=== PATIENT | female | born 1985 | race Two or more races ===

== ENCOUNTER 2018-02-27 02:21 | Emergency (ER) | payer OTHER ==
[2018-02-27 02:28] VITALS: BP 146/92; PULSE 90; TEMP 97.9; BMI 24.5
[2018-02-27] MEDS ORDERED: DIPHTH,PERTUSS(ACELL),TET 0.5 ML DISP.SYRIN IM ONE (02:53)
--- NOTE | 2018-02-27 02:55 | PDOC ---
History of Present Illness - General Chief Complaint: Injury Stated Complaint: INTOX,FALL Time Seen by Provider: 02/27/18 02:32 History Source: Patient Exam Limitations: No Limitations - History of Present Illness Initial Comments: 02/27/18 03:36 This is a 32-year-old woman with past medical history of EtOH abuse was brought to the emergency department by EMS with head trauma. Patient states she does not remember how she sustained the trauma. She reports she was seen at another hospital for alcohol intoxication yesterday and was sent to [facility] for rehabilitation. She was unable to secure a bed this evening and went drinking instead. Patient reports she drank until she couldn't remember. The next thing the patient remembers she woke up and called 911. Patient is currently complaining of chin pain. Past History - Past Medical History Allergies/Adverse Reactions: Allergies Allergy/AdvReac Type Severity Reaction Status Date / Time No Known Allergies Allergy Verified 02/27/18 02:26 Home Medications: Ambulatory Orders NK [No Known Home Medication] 02/27/18 - Suicide/Smoking/Psychosocial Hx Smoking History: Never smoked Have you smoked in the past 12 months: No Information on smoking cessation initiated: No Hx Alcohol Use: No Drug/Substance Use Hx: No Review of Systems - Review of Systems Able to Perform ROS?: Yes Is the patient limited [place] proficient: No Constitutional: No: Symptoms Reported HEENTM: Yes: See HPI Respiratory: No: Symptoms reported Cardiac (ROS): No: Symptoms Reported ABD/GI: No: Symptoms Reported : No: Symptoms Reported Musculoskeletal: No: Symptoms Reported Integumentary: No: Symptoms Reported Neurological: Yes: See HPI *Physical Exam - Vital Signs Last Vital Signs Temp Pulse Resp BP Pulse Ox 97.9 F 90 16 146/92 96 02/27/18 02:26 02/27/18 02:26 02/27/18 02:26 02/27/18 02:26 02/27/18 02:26 - Physical Exam General Appearance: Yes: Appropriately Dressed, Alcohol on Breath. No: Apparent Distress HEENT: positive: EOMI, RAJ, Pharynx Normal, Hearing Grossly Normal, Other ( Ecchymosis noted to the right supraorbital. Hematoma noted to left forehead. Abrasion noted to underside of chin. No Barth sign present. No septal hematomas noted. ). negative: Hearing Decreased, Excessive drooling Neck: positive: Trachea midline, Supple Respiratory/Chest: positive: Lungs Clear, Normal Breath Sounds. negative: Respiratory Distress, Accessory Muscle Use Cardiovascular: positive: Regular Rhythm, Regular Rate, S1, S2. negative: Edema , Murmur Gastrointestinal/Abdominal: positive: Normal Bowel Sounds, Soft. negative: Tender Musculoskeletal: positive: Normal Inspection. negative: CVA Tenderness Extremity: positive: Normal Capillary Refill, Normal Inspection, Normal Range of Motion Integumentary: positive: Normal Color, Dry, Warm Neurologic: positive: molding sander II-XII NML intact, Alert, Normal Mood/Affect, Normal Response, Motor Strength 5/5, Finger to Nose. negative: Fully Oriented ( disoriented to place), Numbness ED Treatment Course - LABORATORY CBC & Chemistry Diagram: 02/27/18 03:10 02/27/18 03:10 - RADIOLOGY Radiology Studies Ordered: Category Date Time Status CERVICAL SPINE CT W/O CONTR [CT] Stat CT Scan 02/27/18 02:[address] WITHOUT CONTRAST [CT] Stat CT Scan 02/27/18 02:53 Ordered Medical Decision Making - Medical Decision Making 02/27/18 03:47 A/P: 32-year-old female with head trauma of unknown etiology status post alcohol consumption Supraorbital ecchymosis present to the right eye Hematoma present to the left for heart No Barth sign present No bony deformity noted to palpation of the face and skull No septal hematomas present Oropharynx with no loose teeth, blood or vomitus present subcetimeter linear superficial lac to submental area- bleeding controlled. Lungs clear to auscultation bilaterally No ecchymosis or bruising noted to the trunk or extremities Abdomen soft nontender nondistended Urine , urinalysis, labs, CT of head and neck Reassess 02/27/18 04:57 CAT scan is read by imaging contract administrative assistant: CT of the head reveals there is no which cranial bleed, x-ray fluid collection, mass effect, midline shift, hydrocephalus, acute territorial infarct with of her skull fracture evident. CT of the C-spine: 1. There is no acute fracture deformity or subluxation. Vertebral body height and alignment are grossly maintained. No significant prevertebral soft tissue thickening. No significant central canal narrowing. 2. Straitening/slight reversal of normal cervical lordosis be due to muscle spasm versus patient positioning. Impression: No acute fracture or acute subluxation. 02/27/18 04:59 Laboratory testing remarkable for elevated AST and ALT which is consistent with patient's excessive alcohol intake tonight. Pt AA&Ox3. Ambulatory with steady gait. No slurring of speech. Pt aceived clinical sobriety. I will refer pt to [facility] should she desire detox/rehab. Refusing presently. I will discharge the patient home. *DC/Admit/Observation/Transfer Diagnosis at time of Disposition: Hematoma Ecchymosis of eye Qualifiers: Encounter type: initial encounter Laterality: right Qualified Code(s): S05.11XA - Contusion of eyeball and orbital tissues, right eye, initial encounter Closed head injury Qualifiers: Encounter type: initial encounter Qualified Code(s): S09.90XA - Unspecified injury of head, initial encounter Abrasion of chin Qualifiers: Encounter type: initial encounter Qualified Code(s): S00.81XA - Abrasion of other part of head, initial encounter - Discharge Dispostion Disposition: HOME Condition at time of disposition: Fair Decision to Admit order: No - Referrals - Patient Instructions Printed Discharge Instructions: DI for Closed Head Injury Additional Instructions: You may experience headaches for the next couple of weeks. Take Tylenol or Motrin as directed by polyethylene combiner's instructions to relieve the pain. Avoid alcohol intake Keep well-hydrated Eat a well-balanced diet Return to emergency department for headaches, nausea, vomiting, blurry vision, dizziness or any other concerns. - Post Discharge Activity
[2018-02-27 03:45] LABS: BASO % 4.8 % (0-2.0); EOS % 1.2 % (0-4.5); HEMOGLOBIN 14.5 GM/dL (10.7-15.3); LYMPH % 50.6 % (8-40); MCH 35.7 pg (25.7-33.7); MCHC 34.4 g/dl (32.0-36.0); MEAN CELL VOLUME 103.6 fl (80-96); MONO % 9.6 % (3.8-10.2); NEUT % 33.8 % (42.8-82.8); PLATELET COUNT 123 K/MM3 (134-434); RBC 4.06 M/mm3 (3.60-5.2); URINE APPEARANCE SLCLOUDY; URINE BILIRUBIN NEGATIVE (<2.0 mg/dL); URINE COLOR YELLOW; URINE GLUCOSE (UA) NEGATIVE (NEGATIVE); URINE KETONE NEGATIVE (NEGATIVE); URINE LEUK ESTERASE TRACE (NEGATIVE); URINE NITRITE NEGATIVE (NEGATIVE); URINE UROBILINOGEN NEGATIVE mg/dL (0.2-1.0); WHITE BLOOD COUNT 3.6 K/mm3 (4.0-10.0)
[2018-02-27 03:46] LABS: HCG,QUALITATIVE URINE NEGATIVE; URINE PROTEIN 2+ (NEGATIVE)
[2018-02-27 03:48] LABS: EPI CELLS FEW /HPF (FEW); URINE MUCUS FEW
[2018-02-27 04:23] LABS: INR 0.94 (0.82-1.09); PROTHROMBIN TIME (PATIENT) 10.6 SEC (9.7-13.0)
[2018-02-27 04:33] LABS: ALBUMIN 4.3 g/dl (3.4-5.0); ANION GAP 10 (8-16); BLOOD UREA NITROGEN 7 mg/dL (7-18); CALCIUM 8.7 mg/dL (8.5-10.1); CHLORIDE 100 mmol/L (98-107); CO2 30 mmol/L (21-32); CREATININE 0.6 mg/dL (0.55-1.02); GLUCOSE,RANDOM 89 mg/dL (74-106); SGPT/ALT 111 U/L (12-78); SODIUM 140 mmol/L (136-145)
[2018-02-27 04:34] LABS: ALK PHOS 98 U/L (45-117); BILIRUBIN,TOTAL 0.8 mg/dL (0.2-1.0)
[2018-02-27 04:43] LABS: POTASSIUM 4.3 mmol/L (3.5-5.1); SGOT/AST 240 U/L (15-37)
== END 2018-02-27 08:08 | disposition home or self-care (01) ==
LOC: JER 02:21
PROC: 3E0234Z Introduction of Serum, Toxoid and Vaccine into Muscle, Percutaneous Approach (ICD-10-PCS; principal; 2018-02-27)
DX: S05.11XA Contusion of eyeball and orbital tissues, right eye, initial encounter (principal); S00.81XA Abrasion of other part of head, initial encounter; F10.10 Alcohol abuse, uncomplicated; X58.XXXA Exposure to other specified factors, initial encounter; Y93.89 Activity, other specified; Y92.89 Other specified places as the place of occurrence of the external cause; Y99.8 Other external cause status
CPT/HCPCS: 36415; 70450-TC; 72125-TC; 80053; 81003; 81015; 84703; 85025; 85610; 90715; 99282-25

== ENCOUNTER 2018-02-27 08:44 | Inpatient (IN) | payer OTHER ==
[2018-02-27 09:25] VITALS: BMI 24.1
--- NOTE | 2018-02-27 14:32 | HP ---
CIWA Score - CIWA Score Nausea/Vomitin-Mild Nausea/No Vomiting Muscle Tremors: 4-Moderate,w/Arms Extend Anxiety: 4-Mod. Anxious/Guarded Agitation: 1-Slight > Activity Paroxysmal Sweats: 1-Minimal Palms Moist Orientation: 1-Uncertain about Date Tacttile Disturbances: 1-Very Mild Itch/Numbness Auditory Disturbances: 1-Very Mild Visual Disturbances: 1-Very Mild Sensitivity Headache: 2-Mild CIWA-Ar Total Score: 17 Admission ROS BHS - HPI Chief Complaint: I want to stop drinking Allergies/Adverse Reactions: Allergies Allergy/AdvReac Type Severity Reaction Status Date / Time No Known Allergies Allergy Verified 02/27/18 02:26 History of Present Illness: 32 yo woman here for detox from alcohol - comes from [facility] where she was evaluated for fall - released back to [facility] for detox - drowsy but rousable. Denies seizures, does have black outs. Previously in detox May 2017. Exam Limitations: Clinical Condition - Ebola screening Have you traveled outside of the country in the last 21 days: No (N) Have you had contact with anyone from an Ebola affected area: No Have you been sick,other than usual withdrawal symptoms: No Do you have a fever: No - Review of Systems Constitutional: Loss of Appetite, Malaise, Weakness EENT: reports: Blurred Vision Respiratory: reports: No Symptoms reported Cardiac: reports: No Symptoms Reported GI: reports: Nausea, Poor Appetite, Abdominal cramping : reports: Frequency Musculoskeletal: reports: No Symptoms Reported, Joint Pain, Muscle Pain Integumentary: reports: Other (chin abrasion) Neuro: reports: Headache Endocrine: reports: No Symptoms Reported Hematology: reports: No Symptoms Reported Psychiatric: reports: Judgement Intact, Mood/Affect Appropiate, Anxious Other Systems: Reviewed and Negative Patient History - Patient Medical History Hx Asthma: No Hx Chronic Obstructive Pulmonary Disease (COPD): No Hx Cancer: No Hx Cardiac Disorders: No Hx Congestive Heart Failure: No Hx Hypertension: No Hx Hypercholesterolemia: No Hx Pacemaker: No HX Cerebrovascular Accident: No Hx Seizures: No Hx Dementia: No Hx Diabetes: No Hx Gastrointestinal Disorders: No Hx Liver Disease: No Hx Genitourinary Disorders: No Hx Sexually Transmitted Disorders: No Hx Renal Disease (ESRD): No Hx Thyroid Disease: No Hx Human Immunodeficiency Virus (HIV): No Hx Hepatitis C: No Hx Depression: Yes (history of being hospitalized) Hx Suicide Attempt: No Hx Bipolar Disorder: No Hx Schizophrenia: No - Patient Surgical History Past Surgical History: No - PPD History Previous Implant?: No PPD to be Administered?: Yes - Reproductive History Patient is a Female of Child Bearing Age (11 -55 yrs old): Yes - Smoking Cessation Smoking history: Current some day smoker Have you smoked in the past 12 months: Yes Aproximately how many cigarettes per day: 1 Hx Chewing Tobacco Use: No Initiated information on smoking cessation: Yes 'Breaking Loose' booklet given: 02/27/18 (give on floor) - Substance & Tx. History Hx Alcohol Use: Yes Hx Substance Use: No Substance Use Type: Alcohol Hx Substance Use Treatment: Yes (detox (may 2017)) - Substances Abused alcohol Route: Oral Frequency: Daily Amount used: 2 pints Age of first use: 15 Date of Last Use: 02/27/18 Family Disease History - Family Disease History Family Disease History: [place]: Father (, hx etoh/drugs), Other: Father, Mother (living - healthy), Brother (one - living - healthy), Sister (two - living - healthy) Admission Physical Exam S - Vital Signs Vital Signs: Vital Signs - 24 hr 02/27/18 09:23 Temperature 97.9 F Pulse Rate 103 H Respiratory 18 Rate Blood Pressure 136/93 - Physical General Appearance: Yes: Nourished, Appropriately Dressed, Mild Distress, Anxious HEENTM: Yes: Hearing grossly Normal, Normocephalic, Normal Voice, Pharynx Normal Respiratory: Yes: Normal Breath Sounds, No Respiratory Distress Neck: Yes: No masses,lesions,Nodules Breast: Yes: Breast Exam Deferred Cardiology: Yes: Regular Rhythm, Regular Rate Abdominal: Yes: Flat Genitourinary: Yes: Frequency Back: Yes: Normal Inspection Musculoskeletal: Yes: full range of Motion, Gait Steady Extremities: Yes: Normal Inspection, Non-Tender Neurological: Yes: Alert, Normal Mood/Affect, Normal Response Integumentary: Yes: Normal Color, Dry, Warm, Other (abrasion chin) Lymphatic: Yes: Within Normal Limits - Diagnostic (1) Alcohol dependence with uncomplicated withdrawal Current Visit: Yes Status: Chronic (2) Elevated LFTs Current Visit: Yes Status: Chronic (3) Abrasion of chin Current Visit: Yes Status: Acute Qualifiers: Encounter type: initial encounter Qualified Code(s): S00.81XA - Abrasion of other part of head, initial encounter Cleared for Admission [facility] - Detox or Rehab [facility] Level of Care: Medically Managed Detox Regimen/Protocol: Librium [facility] Breath Alcohol Content Breath Alcohol Content: 0 Urine Pregancy Test - Result Urine Test Results: Negative- NO Line Present Urine Drug Screen - Results Drug Screen Negative: No Urine Drug Screen Results: BZO-Benzodiazepines
[2018-02-27] MEDS ORDERED: LOPERAMIDE HCL 2 MG CAPSULE PO PRN (14:43)
[2018-02-27] MEDS ORDERED: chlordiazePOXIDE HCL 25 MG CAPSULE PO PRN (14:43)
[2018-02-27] MEDS ORDERED: MAG HYDROX/AL HYDROX/SIMETH 30 ML UNIT-DOSE CUP PO PRN (14:43)
[2018-02-27] MEDS ORDERED: guaiFENesin/D-METHORPHAN HB 10 ML UNIT-DOSE CUPS PO PRN (14:43)
[2018-02-27] MEDS ORDERED: ACETAMINOPHEN 325 MG TABLET (FP) PO PRN (14:43)
[2018-02-27] MEDS ORDERED: NICOTINE POLACRILEX 2 MG GUM BUC PRN (14:43)
[2018-02-27] MEDS ORDERED: MAGNESIUM HYDROX 2400MG/30ML ORAL SUSPENSION 30 ML CUP PO PRN (14:43)
[2018-02-27] MEDS ORDERED: IBUPROFEN 400 MG TABLET (FP) PO PRN (14:43)
[2018-02-27] MEDS ORDERED: MENTHOL/PHENOL 1 EACH UD MM PRN (14:43)
[2018-02-27] MEDS ORDERED: MAGNESIUM CITRATE 300 ML BOTTLE PO PRN (14:43)
[2018-02-27] MEDS ORDERED: hydrOXYzine PAMOATE 25 MG CAPSULE (FP) PO PRN (14:43)
[2018-02-27] MEDS ORDERED: P-EPHED 60MG/TRIPROLIDI 2.5MG TABLET PO PRN (14:43)
[2018-02-27] MEDS ORDERED: chlordiazePOXIDE HCL 25 MG CAPSULE PO ONE (15:30)
[2018-02-27] MEDS: chlordiazePOXIDE HCL 25 MG CAPSULE PO SCH ×2 (19:20→22:25)
[2018-02-27] MEDS: THIAMINE HCL 100 MG TABLET (FP) PO SCH (22:25)
[2018-02-28] MEDS: chlordiazePOXIDE HCL 25 MG CAPSULE PO SCH ×4 (05:46→22:34)
[2018-02-28 10:34] LABS: HEMATOCRIT 39.2 % (32.4-45.2); HEMOGLOBIN 13.5 GM/dL (10.7-15.3); MCH 35.3 pg (25.7-33.7); MCHC 34.3 g/dl (32.0-36.0); MEAN CELL VOLUME 102.9 fl (80-96); MEAN PLT VOLUME 9.1 fl (7.5-11.1); PLATELET COUNT 110 K/MM3 (134-434); RBC 3.81 M/mm3 (3.60-5.2); RDW 14.7 % (11.6-15.6); WHITE BLOOD COUNT 4.7 K/mm3 (4.0-10.0)
[2018-02-28 10:41] LABS: ALBUMIN 4.3 g/dl (3.4-5.0); ANION GAP 9 (8-16); BLOOD UREA NITROGEN 6 mg/dL (7-18); CHLORIDE 94 mmol/L (98-107); CO2 32 mmol/L (21-32); GLUCOSE,RANDOM 90 mg/dL (74-106); POTASSIUM 3.6 mmol/L (3.5-5.1); SGOT/AST 207 U/L (15-37); SGPT/ALT 95 U/L (12-78); SODIUM 135 mmol/L (136-145)
[2018-02-28 10:44] LABS: ALK PHOS 104 U/L (45-117); BILIRUBIN,TOTAL 1.4 mg/dL (0.2-1.0); CALCIUM 8.9 mg/dL (8.5-10.1); CREATININE 0.8 mg/dL (0.55-1.02); TOT PROT 7.5 g/dl (6.4-8.2)
[2018-02-28] MEDS: PRENATAL VITAMINS W/ FOLIC ACID TABLET (FP) PO SCH (10:44)
[2018-02-28 11:04] LABS: URINE APPEARANCE CLOUDY; URINE BILIRUBIN NEGATIVE (<2.0 mg/dL); URINE COLOR DKYELLOW; URINE GLUCOSE (UA) NEGATIVE (NEGATIVE); URINE KETONE NEGATIVE (NEGATIVE); URINE LEUK ESTERASE TRACE (NEGATIVE); URINE NITRITE NEGATIVE (NEGATIVE); URINE UROBILINOGEN NEGATIVE mg/dL (0.2-1.0)
[2018-02-28 11:31] LABS: URINE PROTEIN 2+ (NEGATIVE)
[2018-02-28 11:55] LABS: CALCIUM OXALATE CRYSTALS RARE /hpf (NONE SEEN); EPI CELLS FEW /HPF (FEW); URINE BACTERIA RARE /hpf (NONE SEEN); URINE MUCUS RARE
--- NOTE | 2018-02-28 12:07 | CONSULT ---
[facility] Psychiatric Consult - Data Date of interview: 02/28/18 Admission source: Referred from Medical ED for Detox @ [facility] Identifying data: Patient is a 32 y/o female single,domiciled, employed with a 4 year history of ETOH use disorder. She has been in an out patient drug Rehab program through her job in 2017. Drinks erik one pint daily, history of black out spells no seizure disorder Substance Abuse History: 4 year history of ETOH abuse. smokes 4-5 cigarettes daily. Denies other illiicit drug use. Refer to addiction counselor summary for more detailed information Medical History: Patient has no active medical problem Psychiatric History: She denies prior contact with mental health car professional Physical/Sexual Abuse/Trauma History: No reported history of abuse or trauma Additional Comment: Patient acknow;edged that she has been depressed over several losses, Triggers: separation for her living girlfriend 2 years ago. MGM 2 years ago. She denies vegetative signs denies sleep or appetite disturbances Mental Status Exam - Mental Status Exam Alert and Oriented to: Place, Person Cognitive Function: Grossly Intact Patient Appearance: Unkempt Mood: Depressed Affect: Appropriate Patient Behavior: Cooperative Speech Pattern: Clear Voice Loudness: Normal Thought Process: Intact Thought Disorder: Not Present Hallucinations: None Suicidal Ideation: None Homicidal Ideation: None Insight/Judgement: Poor Sleep: Fair Appetite: Good Muscle strength/Tone: Normal Gait/Station: Normal (patient needs in patient Deox treatment and a referral to a Community clinic for her continuity of mental health care treatment) Psychiatric Findings - Problem List ([place] 1, 2,3) (1) Depressed Current Visit: Yes Status: Acute Qualifiers: Major depression episode severity: mild (2) Abrasion of chin Current Visit: Yes Status: Acute Qualifiers: Encounter type: initial encounter Qualified Code(s): S00.81XA - Abrasion of other part of head, initial encounter (3) Alcohol dependence with uncomplicated withdrawal Current Visit: Yes Status: Chronic (4) Closed head injury Current Visit: No Status: Acute Qualifiers: Encounter type: initial encounter Qualified Code(s): S09.90XA - Unspecified injury of head, initial encounter (5) Ecchymosis of eye Current Visit: No Status: Acute Qualifiers: Encounter type: initial encounter Laterality: right Qualified Code(s): S05.11XA - Contusion of eyeball and orbital tissues, right eye, initial encounter - Initial Treatment Plan Initial Treatment Plan: Continue in patient Detox treatment
--- NOTE | 2018-02-28 12:23 | PN ---
[facility] CIWA - CIWA Score Nausea/Vomitin-Mild Nausea/No Vomiting Muscle Tremors: 3 Anxiety: 3 Agitation: 3 Paroxysmal Sweats: 3 Orientation: 0-Oriented Tacttile Disturbances: 0-None Auditory Disturbances: 0-None Visual Disturbances: 0-None Headache: 1-Very Mild CIWA-Ar Total Score: 14 S Progress Note (SOAP) Subjective: body aches sweats shakes interrupted sleep bruise and cut on my chin Objective: 02/28/18 12:21 Vital Signs Temperature 98.4 F 02/28/18 10:25 Pulse Rate 110 H 02/28/18 10:30 Respiratory Rate 18 02/28/18 10:30 Blood Pressure 140/93 02/28/18 10:25 O2 Sat by Pulse Oximetry (%) Laboratory Tests 02/28/18 02/28/18 02/28/18 08:00 08:00 09:20 WBC 4.7 D RBC 3.81 Hgb 13.5 Hct 39.2 MCV 102.9 H MCH 35.3 H MCHC 34.3 RDW 14.7 Plt Count 110 L MPV 9.1 D Sodium 135 L Potassium 3.6 Chloride 94 L Carbon Dioxide 32 Anion Gap 9 BUN 6 L Creatinine 0.8 Creat Clearance w eGFR > 60 Random Glucose 90 Calcium 8.9 Total Bilirubin 1.4 H D AST 207 H ALT 95 H Alkaline Phosphatase 104 Total Protein 7.5 Albumin 4.3 Urine Color Dkyellow Urine Appearance Cloudy Urine pH 6.0 Ur Specific [place] 1.026 Urine Protein 2+ H Urine Glucose (UA) Negative Urine Ketones Negative Urine Blood 1+ H Urine Nitrite Negative Urine Bilirubin Negative Urine Urobilinogen Negative Ur Leukocyte Esterase Trace Urine WBC (Auto) 6 Urine RBC (Auto) 1 Ur Epithelial Cells Few Calcium Oxalate Crystal Rare Urine Bacteria Rare Urine Mucus Rare aaox3 ambulating no acute distress elevated ast/alt; d/c tylenol increase fluids Assessment: 02/28/18 12:22 withdrawal sx Plan: continue detox increase fluids bacitracin oint for abrasion to chin d/c tylenol
[2018-02-28] MEDS: BACITRACIN 15 GM TUBE TOPICAL OINTMENT TP SCH ×2 (14:03→22:34)
[2018-02-28] MEDS: THIAMINE HCL 100 MG TABLET (FP) PO SCH (22:35)
[2018-02-28] MEDS: MELATONIN 5 MG TABLETS PO PRN (22:35)
[2018-03-01] MEDS: chlordiazePOXIDE HCL 25 MG CAPSULE PO SCH ×2 (05:48→10:53)
[2018-03-01] MEDS ORDERED: BACITRACIN 0.9 GM PACKET ONE (09:01)
[2018-03-01 10:51] LABS: SGOT/AST 177 U/L (15-37); SGPT/ALT 78 U/L (12-78)
[2018-03-01] MEDS: PRENATAL VITAMINS W/ FOLIC ACID TABLET (FP) PO SCH (10:53)
[2018-03-01] MEDS: BACITRACIN 15 GM TUBE TOPICAL OINTMENT TP SCH ×2 (10:53→22:53)
--- NOTE | 2018-03-01 11:58 | PN ---
S CIWA - CIWA Score Nausea/Vomitin-Mild Nausea/No Vomiting Muscle Tremors: 4-Moderate,w/Arms Extend Anxiety: 3 Agitation: 3 Paroxysmal Sweats: 1-Minimal Palms Moist Orientation: 0-Oriented Tacttile Disturbances: 0-None Auditory Disturbances: 0-None Visual Disturbances: 0-None Headache: 0-None Present CIWA-Ar Total Score: 12 BHS Progress Note (SOAP) Subjective: sweat tremor anxiety restlessness gi distress Objective: 03/01/18 11:57 Vital Signs Temperature 97.7 F 03/01/18 09:46 Pulse Rate 83 03/01/18 09:46 Respiratory Rate 16 03/01/18 09:46 Blood Pressure 118/76 03/01/18 09:46 O2 Sat by Pulse Oximetry (%) Laboratory Last Values WBC 4.7 K/mm3 (4.0-10.0) D 02/28/18 08:00 RBC 3.81 M/mm3 (3.60-5.2) 02/28/18 08:00 Hgb 13.5 GM/dL (10.7-15.3) 02/28/18 08:00 Hct 39.2 % (32.4-45.2) 02/28/18 08:00 MCV 102.9 fl (80-96) H 02/28/18 08:00 MCH 35.3 pg (25.7-33.7) H 02/28/18 08:00 MCHC 34.3 g/dl (32.0-36.0) 02/28/18 08:00 RDW 14.7 % (11.6-15.6) 02/28/18 08:00 Plt Count 110 K/MM3 (134-434) L 02/28/18 08:00 MPV 9.1 fl (7.5-11.1) D 02/28/18 08:00 Sodium 135 mmol/L (136-145) L 02/28/18 08:00 Potassium 3.6 mmol/L (3.5-5.1) 02/28/18 08:00 Chloride 94 mmol/L (98-107) L 02/28/18 08:00 Carbon Dioxide 32 mmol/L (21-32) 02/28/18 08:00 Anion Gap 9 (8-16) 02/28/18 08:00 BUN 6 mg/dL (7-18) L 02/28/18 08:00 Creatinine 0.8 mg/dL (0.55-1.02) 02/28/18 08:00 Creat Clearance w eGFR > 60 (>60) 02/28/18 08:00 Random Glucose 90 mg/dL (74-106) 02/28/18 08:00 Calcium 8.9 mg/dL (8.5-10.1) 02/28/18 08:00 Total Bilirubin 1.4 mg/dL (0.2-1.0) H D 02/28/18 08:00 AST 177 U/L (15-37) H 03/01/18 07:00 ALT 78 U/L (12-78) 03/01/18 07:00 Alkaline Phosphatase 104 U/L (45-117) 02/28/18 08:00 Total Protein 7.5 g/dl (6.4-8.2) 02/28/18 08:00 Albumin 4.3 g/dl (3.4-5.0) 02/28/18 08:00 Urine Color Dkyellow 02/28/18 09:20 Urine Appearance Cloudy 02/28/18 09:20 Urine pH 6.0 (5.0-8.0) 02/28/18 09:20 Ur Specific [place] 1.026 (1.001-1.035) 02/28/18 09:20 Urine Protein 2+ (NEGATIVE) H 02/28/18 09:20 Urine Glucose (UA) Negative (NEGATIVE) 02/28/18 09:20 Urine Ketones Negative (NEGATIVE) 02/28/18 09:20 Urine Blood 1+ (NEGATIVE) H 02/28/18 09:20 Urine Nitrite Negative (NEGATIVE) 02/28/18 09:20 Urine Bilirubin Negative (<2.0 mg/dL) 02/28/18 09:20 Urine Urobilinogen Negative mg/dL (0.2-1.0) 02/28/18 09:20 Ur Leukocyte Esterase Trace (NEGATIVE) 02/28/18 09:20 Urine WBC (Auto) 6 /hpf (3-5) 02/28/18 09:20 Urine RBC (Auto) 1 /hpf (0-3) 02/28/18 09:20 Ur Epithelial Cells Few /HPF (FEW) 02/28/18 09:20 Calcium Oxalate Crystal Rare /hpf (NONE SEEN) 02/28/18 09:20 Urine Bacteria Rare /hpf (NONE SEEN) 02/28/18 09:20 Urine Mucus Rare 02/28/18 09:20 RPR Titer Nonreactive (NONREACTIVE) 02/28/18 08:00 lab noted Assessment: 03/01/18 11:58 withdrawal sx Plan: continue detox
[2018-03-01] MEDS: chlordiazePOXIDE 5 MG CAPSULE PO SCH ×2 (17:11→22:23)
[2018-03-01] MEDS: THIAMINE HCL 100 MG TABLET (FP) PO SCH (22:23)
[2018-03-01] MEDS: MELATONIN 5 MG TABLETS PO PRN (22:23)
--- NOTE | 2018-03-02 00:50 | EKG ---
Test Reason : Blood Pressure : / mmHG Vent. Rate : 097 BPM Atrial Rate : 097 BPM P-R Int : 118 ms QRS Dur : 082 ms QT Int : 376 ms P-R-T Axes : 018 061 064 degrees QTc Int : 477 ms NORMAL SINUS RHYTHM NORMAL ECG NO PREVIOUS ECGS AVAILABLE Confirmed by CLARK WHITMORE MD ([id number]) on 03/02/2018 12:50:40 AM Referred By: Confirmed By:CLARK WHITMORE MD
[2018-03-02] MEDS: chlordiazePOXIDE 5 MG CAPSULE PO SCH ×2 (06:05→10:29)
--- NOTE | 2018-03-02 09:00 | PN ---
BHS Progress Note (SOAP) Subjective: feeling better no sweat no tremor social with peers in day room alert oriented x 3 no acute distress Objective: 03/02/18 08:59 Vital Signs Temperature 97.9 F 03/02/18 07:26 Pulse Rate 76 03/02/18 07:26 Respiratory Rate 18 03/02/18 07:26 Blood Pressure 115/75 03/02/18 07:26 O2 Sat by Pulse Oximetry (%) Laboratory Last Values WBC 4.7 K/mm3 (4.0-10.0) D 02/28/18 08:00 RBC 3.81 M/mm3 (3.60-5.2) 02/28/18 08:00 Hgb 13.5 GM/dL (10.7-15.3) 02/28/18 08:00 Hct 39.2 % (32.4-45.2) 02/28/18 08:00 MCV 102.9 fl (80-96) H 02/28/18 08:00 MCH 35.3 pg (25.7-33.7) H 02/28/18 08:00 MCHC 34.3 g/dl (32.0-36.0) 02/28/18 08:00 RDW 14.7 % (11.6-15.6) 02/28/18 08:00 Plt Count 110 K/MM3 (134-434) L 02/28/18 08:00 MPV 9.1 fl (7.5-11.1) D 02/28/18 08:00 Sodium 135 mmol/L (136-145) L 02/28/18 08:00 Potassium 3.6 mmol/L (3.5-5.1) 02/28/18 08:00 Chloride 94 mmol/L (98-107) L 02/28/18 08:00 Carbon Dioxide 32 mmol/L (21-32) 02/28/18 08:00 Anion Gap 9 (8-16) 02/28/18 08:00 BUN 6 mg/dL (7-18) L 02/28/18 08:00 Creatinine 0.8 mg/dL (0.55-1.02) 02/28/18 08:00 Creat Clearance w eGFR > 60 (>60) 02/28/18 08:00 Random Glucose 90 mg/dL (74-106) 02/28/18 08:00 Calcium 8.9 mg/dL (8.5-10.1) 02/28/18 08:00 Total Bilirubin 1.4 mg/dL (0.2-1.0) H D 02/28/18 08:00 AST 177 U/L (15-37) H 03/01/18 07:00 ALT 78 U/L (12-78) 03/01/18 07:00 Alkaline Phosphatase 104 U/L (45-117) 02/28/18 08:00 Total Protein 7.5 g/dl (6.4-8.2) 02/28/18 08:00 Albumin 4.3 g/dl (3.4-5.0) 02/28/18 08:00 Urine Color Dkyellow 02/28/18 09:20 Urine Appearance Cloudy 02/28/18 09:20 Urine pH 6.0 (5.0-8.0) 02/28/18 09:20 Ur Specific [place] 1.026 (1.001-1.035) 02/28/18 09:20 Urine Protein 2+ (NEGATIVE) H 02/28/18 09:20 Urine Glucose (UA) Negative (NEGATIVE) 02/28/18 09:20 Urine Ketones Negative (NEGATIVE) 02/28/18 09:20 Urine Blood 1+ (NEGATIVE) H 02/28/18 09:20 Urine Nitrite Negative (NEGATIVE) 02/28/18 09:20 Urine Bilirubin Negative (<2.0 mg/dL) 02/28/18 09:20 Urine Urobilinogen Negative mg/dL (0.2-1.0) 02/28/18 09:20 Ur Leukocyte Esterase Trace (NEGATIVE) 02/28/18 09:20 Urine WBC (Auto) 6 /hpf (3-5) 02/28/18 09:20 Urine RBC (Auto) 1 /hpf (0-3) 02/28/18 09:20 Ur Epithelial Cells Few /HPF (FEW) 02/28/18 09:20 Calcium Oxalate Crystal Rare /hpf (NONE SEEN) 02/28/18 09:20 Urine Bacteria Rare /hpf (NONE SEEN) 02/28/18 09:20 Urine Mucus Rare 02/28/18 09:20 RPR Titer Nonreactive (NONREACTIVE) 02/28/18 08:00 lab noted 03/02/18 09:00 lowering AST through the detox process health teaching on alcohol related health consequences Assessment: 03/02/18 09:01 mild withdrawal sx Plan: medically supervised detox
[2018-03-02] MEDS: PRENATAL VITAMINS W/ FOLIC ACID TABLET (FP) PO SCH (10:29)
[2018-03-02] MEDS: BACITRACIN 15 GM TUBE TOPICAL OINTMENT TP SCH ×2 (10:30→22:44)
[2018-03-02] MEDS: chlordiazePOXIDE HCL 10 MG CAPSULE PO SCH ×2 (17:39→22:26)
[2018-03-02] MEDS: THIAMINE HCL 100 MG TABLET (FP) PO SCH (22:26)
[2018-03-02] MEDS: MELATONIN 5 MG TABLETS PO PRN (22:26)
[2018-03-03] MEDS: chlordiazePOXIDE HCL 10 MG CAPSULE PO SCH (06:39)
[2018-03-03 07:18] VITALS: BP 122/76; PULSE 75; TEMP 97.5
--- NOTE | 2018-03-03 11:36 | DS ---
[facility] Detox Discharge Summary Admission Date: 02/27/18 Discharge Date: 03/03/18 - History Present History: Alcohol Dependence Additional Comments: 32 years old female admitted 02/27/18 for alcohol withdrawal sx completed detox regimen tolerate well denies alcohol withdrawal sx alert oriented x 3 no acute distress after care [facility] brief motivational intervention patient acknowledged sobriety through recovery - Physical Exam Results Vital Signs: Vital Signs Temperature 97.5 F L 03/03/18 09:20 Pulse Rate 75 03/03/18 09:20 Respiratory Rate 18 03/03/18 09:20 Blood Pressure 122/76 03/03/18 09:20 O2 Sat by Pulse Oximetry (%) Pertinent Admission Physical Exam Findings: withdrawal sx Vital Signs Temperature 97.5 F L 03/03/18 09:20 Pulse Rate 75 03/03/18 09:20 Respiratory Rate 18 03/03/18 09:20 Blood Pressure 122/76 03/03/18 09:20 O2 Sat by Pulse Oximetry (%) Laboratory Last Values WBC 4.7 K/mm3 (4.0-10.0) D 02/28/18 08:00 RBC 3.81 M/mm3 (3.60-5.2) 02/28/18 08:00 Hgb 13.5 GM/dL (10.7-15.3) 02/28/18 08:00 Hct 39.2 % (32.4-45.2) 02/28/18 08:00 MCV 102.9 fl (80-96) H 02/28/18 08:00 MCH 35.3 pg (25.7-33.7) H 02/28/18 08:00 MCHC 34.3 g/dl (32.0-36.0) 02/28/18 08:00 RDW 14.7 % (11.6-15.6) 02/28/18 08:00 Plt Count 110 K/MM3 (134-434) L 02/28/18 08:00 MPV 9.1 fl (7.5-11.1) D 02/28/18 08:00 Sodium 135 mmol/L (136-145) L 02/28/18 08:00 Potassium 3.6 mmol/L (3.5-5.1) 02/28/18 08:00 Chloride 94 mmol/L (98-107) L 02/28/18 08:00 Carbon Dioxide 32 mmol/L (21-32) 02/28/18 08:00 Anion Gap 9 (8-16) 02/28/18 08:00 BUN 6 mg/dL (7-18) L 02/28/18 08:00 Creatinine 0.8 mg/dL (0.55-1.02) 02/28/18 08:00 Creat Clearance w eGFR > 60 (>60) 02/28/18 08:00 Random Glucose 90 mg/dL (74-106) 02/28/18 08:00 Calcium 8.9 mg/dL (8.5-10.1) 02/28/18 08:00 Total Bilirubin 1.4 mg/dL (0.2-1.0) H D 02/28/18 08:00 AST 177 U/L (15-37) H 03/01/18 07:00 ALT 78 U/L (12-78) 03/01/18 07:00 Alkaline Phosphatase 104 U/L (45-117) 02/28/18 08:00 Total Protein 7.5 g/dl (6.4-8.2) 02/28/18 08:00 Albumin 4.3 g/dl (3.4-5.0) 02/28/18 08:00 Urine Color Dkyellow 02/28/18 09:20 Urine Appearance Cloudy 02/28/18 09:20 Urine pH 6.0 (5.0-8.0) 02/28/18 09:20 Ur Specific [place] 1.026 (1.001-1.035) 02/28/18 09:20 Urine Protein 2+ (NEGATIVE) H 02/28/18 09:20 Urine Glucose (UA) Negative (NEGATIVE) 02/28/18 09:20 Urine Ketones Negative (NEGATIVE) 02/28/18 09:20 Urine Blood 1+ (NEGATIVE) H 02/28/18 09:20 Urine Nitrite Negative (NEGATIVE) 02/28/18 09:20 Urine Bilirubin Negative (<2.0 mg/dL) 02/28/18 09:20 Urine Urobilinogen Negative mg/dL (0.2-1.0) 02/28/18 09:20 Ur Leukocyte Esterase Trace (NEGATIVE) 02/28/18 09:20 Urine WBC (Auto) 6 /hpf (3-5) 02/28/18 09:20 Urine RBC (Auto) 1 /hpf (0-3) 02/28/18 09:20 Ur Epithelial Cells Few /HPF (FEW) 02/28/18 09:20 Calcium Oxalate Crystal Rare /hpf (NONE SEEN) 02/28/18 09:20 Urine Bacteria Rare /hpf (NONE SEEN) 02/28/18 09:20 Urine Mucus Rare 02/28/18 09:20 RPR Titer Nonreactive (NONREACTIVE) 02/28/18 08:00 lab noted - Treatment Hospital Course: Detox Protocol Followed, Detoxed Safely, Responded well, Discharged Condition Good, Rehab Referral Accepted Patient has Accepted a Rehab Referral to: [facility] - Medication Discharge Medications: Ambulatory Orders NK [No Known Home Medication] 02/27/18 - Diagnosis (1) Alcohol dependence with uncomplicated withdrawal Current Visit: Yes Status: Acute (2) Elevated LFTs Current Visit: Yes Status: Chronic - AMA Did Patient Leave Against Medical Advice: No
== END 2018-03-03 10:00 | disposition home or self-care (01) | DRG 775 ==
LOC: YASAS 08:44 → Y6N 15:16
PROVIDERS: ADMIT Surgery; ATTEND Surgery
PROC: HZ2ZZZZ Detoxification Services for Substance Abuse Treatment (ICD-10-PCS; principal; 2018-02-27)
DX: F10.230 Alcohol dependence with withdrawal, uncomplicated (principal); F17.210 Nicotine dependence, cigarettes, uncomplicated; F32.9 Major depressive disorder, single episode, unspecified; R94.5 Abnormal results of liver function studies; R74.0 Nonspecific elevation of levels of transaminase and lactic acid dehydrogenase [LDH]; S00.81XD Abrasion of other part of head, subsequent encounter; S09.90XD Unspecified injury of head, subsequent encounter; S05.11XD Contusion of eyeball and orbital tissues, right eye, subsequent encounter; W19.XXXD Unspecified fall, subsequent encounter
CPT/HCPCS: 36415; 80053; 81003; 81015; 84450; 84460; 85027; 86593; 93005; 93010